=== PATIENT | female | born 1950 | race Caucasian/White ===

== ENCOUNTER → 2020-11-30 10:30 | Outpatient (CLI) | payer MEDICARE, SELFPAY ==
[2020-11-30 11:49] LABS: Add Manual Diff / Slide Review NO; Basophils Absolute Auto 200 /uL (0-100); Basophils Percent Auto 3.1 % (0-2); Eosinophils Absolute Auto 300 /uL (0-450); Eosinophils Percent Auto 5.9 % (2-4); Hematocrit 36.7 % (36-46); Hemoglobin 12.1 g/dL (12.0-16.0); Lymphocytes Absolute Auto 1600 /uL (1100-4500); Lymphocytes Percent Auto 28.1 % (25-40); Mean Corpuscular HGB Conc 32.9 % (30-36); Mean Corpuscular Hemoglobin 25.8 PG (26-34); Mean Corpuscular Volume 78.5 fL (80-100); Monocytes Absolute Auto 500 /uL (0-900); Monocytes Percent Auto 8.7 % (3-14); Neutrophils Absolute Auto 3100 /uL (1500-7000); Neutrophils Percent Auto 54.2 % (50-75); Platelet Count 222 X10^3/uL (150-400); Red Blood Cell Count 4.68 X10^6/uL (4.0-5.2); Red Cell Distribution Width 15.1 % (11.6-14.8); White Blood Cell Count 5.7 X10^3/uL (4.5-11.0)
[2020-11-30 11:54] LABS: Hemoglobin A1C% w Est Avg Glu 5.9 % (4.0-6.0)
[2020-11-30 12:18] LABS: BUN Creatinine Ratio 32.1 (6-22); Blood Urea Nitrogen 25 mg/dL (7-17); Calcium 9.1 mg/dL (8.4-10.2); Carbon Dioxide 32 mmol/L (22-32); Chloride 105 mmol/L (98-107); Estimated Glomerular Filt Rate > 60.0 mL/min (>60); Glucose 93 mg/dL (80-110); HEMOLYSIS < 15 (0-50); Potassium 4.1 mmol/L (3.4-5.1); Sodium 138 mmol/L (137-145)
== END ==
PROVIDERS: PCP Internal Medicine; Referring Provider Orthopaedic Surgery; Visit Provider Orthopaedic Surgery
DX: Z01.818 Encounter for other preprocedural examination (principal); Z01.812 Encounter for preprocedural laboratory examination; R73.9 Hyperglycemia, unspecified
CPT/HCPCS: 36415; 80048; 83036; 85025; 93005

== ENCOUNTER → 2020-12-15 13:13 | Outpatient (CLI) | payer MEDICARE, SELFPAY ==
[2020-12-15 14:35] LABS: COVID19 -Nasal RAPID Negative (Negative)
== END ==
PROVIDERS: PCP Internal Medicine; Visit Provider Physician Assistant
DX: Z20.822 Contact with and (suspected) exposure to COVID-19 (principal)
CPT/HCPCS: 87635; C9803

== ENCOUNTER 2020-12-18 15:14 | Observation (INO) | payer MEDICARE, SELFPAY ==
[2020-12-17] VITALS (18 sets, daily range): BP systolic 112–141; BP diastolic 51–78; PULSE 57–80; RESP 11–20; TEMP 36.2–37.5; O2SAT 91–98; BMI 37.4
--- NOTE | 2020-12-17 06:00 | DI.RAD.S_ITS ---
PROCEDURE: XR KNEE RT 1TO2V INDICATIONS: post op TKA TECHNIQUE: 2 views of the knee acquired. COMPARISON: [facility] [place], OLIVIA, XR KNEE STANDING BILATERAL, 06/11/2020, 11:30. [facility], OLIVIA, XR KNEE 1 OR 2 VIEWS RIGHT, 07/25/2020, 13:49. FINDINGS: Bones: Patient is status post knee joint arthroplasty. Hardware components are in expected positions. Visualized bony structures are intact. Soft tissues: Overlying postoperative changes are noted. IMPRESSION: Status post right total knee arthroplasty with expected postsurgical changes. Dictated by: Regis Gunn M.D. on 12/17/2020 at 9:55 Approved by: Regis Gunn M.D. on 12/17/2020 at 9:56
[2020-12-17] MEDS: ACETAMINOPHEN 325 MG TABLET 975 MG PO (07:15)
[2020-12-17] MEDS: MELOXICAM 7.5 MG TABLET 15 MG PO (07:16)
[2020-12-17] MEDS: PREGABALIN 75 MG CAPSULE PO (07:16)
[2020-12-17] MEDS: LACTATED RINGERS 1,000 ML 42 ML IV ×2 (07:19→09:05)
--- NOTE | 2020-12-17 07:33 | PM.PREOP ---
Pre-operative Note COVID-19 COVID-19 status: Negative Result date/Date tested (Pos, Neg/Pending): 12/15/20 Interval Note History & Physical reviewed/Exam performed by Physician: Yes Changes to H&P: No
[2020-12-17] MEDS: CEFAZOLIN 2 GM/100 ML FROZ.PIGGY IV (07:42)
[2020-12-17] MEDS: TRANEXAMIC ACID 1,000 MG VIAL 2000 MG INJ ×2 (08:00→09:04)
--- NOTE | 2020-12-17 08:14 | SUR.OPER ---
Supine on padded OR bed. Pillow under head, arms secured on padded armboards <90 degree abduction. Safety belt across torso. Non-operative leg secured with tape over blanket over lower leg. Operative leg secured in DeMayo/Oskar positioner. Foam padded brace at thigh of operative leg.
[2020-12-17] MEDS: MORPHINE 4 MG/ML INJ INJ (08:26)
[2020-12-17] MEDS: BUPIVACAINE 0.25% W/ EPI (PF) 10 ML VIAL 20 ML INJ (08:27)
[2020-12-17] MEDS: BUPIVACAINE LIPOSOME 266 MG/20 ML VIAL INJ (08:27)
--- NOTE | 2020-12-17 08:31 | SUR.OPER ---
GLASSES IN LABELED BAG TO PACU WITH PATIENT.
--- NOTE | 2020-12-17 09:35 | P.OP_ITS ---
Operative Date/Time/Diagnoses Date of procedure: 12/17/20 Time of procedure: 09:36 Pre-op diagnosis: Right knee osteoarthritis Post-op diagnosis: same Procedure & Clinicians Procedure: Right total knee replacement Same procedure as scheduled: Yes Indications: The patient has had progressively worsening right knee pain with radiographic changes consistent with arthritis. Non-operative management has failed and the patient has requested total knee replacement. The risks, benefits and alternatives to surgery were discussed with the patient prior to proceeding. Risks discussed included, but were not limited to, failure to relieve pain, stiffness, infection, nerve damage, deep venous thrombosis, pulmonary embolism, stroke, coma, heart attack, permanent paralysis and , as well as the potential need for eventual revision of the prosthetic. Surgeon: Quincy Gutierrez Director Report: Raphael Krishna Click Yes if Unassisted: No Anesthesia Type: General, Spinal and Local Operative Notes Findings: Severe medial and moderate patellofemoral osteoarthritis with relative preservation of the lateral compartment. Closure Type: primary Specimen(s): none sent Prosthetic devices, grafts, tissues, transplants, or devices: Implants used in this procedure were manufactured by the [employer] and [employer] and included the BCS II Journey total knee replacement with a size 5 right Oxinium femoral component, a size 4 non porous tibial base plate, a 9 mm cross-linked polyethylene insert and a 32 mm oval Sahra II patella. Applied: implant(s) Estimated Blood Loss (mL): 25 Blood products transfused: none Tourniquet time (min): 53 Procedure in detail: The patient was seen in the pre-operative area, where the patient identified the right knee as the operative site and this was marked with my initials. The patient received pre-operative antibiotics, and was taken to the operating room and placed on the operative table in the supine position. After satisfactory anesthesia, a point of care technician out was performed. The right leg was encircled with a tourniquet about the proximal thigh, and the leg was prepared from the toes to the tourniquet with ChloroPrep in the usual fashion and draped through sterile drapes. The leg was elevated and exsanguinated with Eschmark bandage and the tourniquet inflated to 250 mmHg pressure. The knee was approached through an approximately 18 cm incision centered over the patella and carried into the knee through a medial parapatellar arthrotomy. The anterior osteophytes and soft tissues were removed. The rotational landmarks of Haily's line and the transepicondylar axis were marked on the femur with electrocautery, and intramedullary guide holes for the femur and tibia were created. The distal femoral cut was made in 6 degrees of valgus using the intramedullary guide at the primary cut setting. The proximal tibial cut was then made using the intramedullary guide, taking 9 mm of bone off the less involved side. The extension gap was checked and the rotation of the femoral component confirmed with the gap balancing system. The anterior, posterior and chamfer cuts were then made. The posterior osteophytes and soft tissues were then removed. The posterior capsule was injected with part of a mixture of 60 ml 0.25% Marcaine mixed with 20 ml Exparel and 4 mg of morphine for post-operative pain control. The remainder of this mixture was injected into the capsule and subcutaneous tissues during cement curing. The tibia was prepared with the rotation set by an extra medullary guide. Trial tibial and femoral components were then placed and the intercondylar notch cut through the femoral trial. Range of motion was 0-130 degrees, with good stability throughout the range. The patella was then cut to accommodate the patellar prosthetic. There was no need for a lateral release. The trials were then removed, and the femoral hole plugged with a bone plug. The bone was prepared with pulsatile lavage, and dried with a sponge. Cement was applied and the final prosthetics placed. Excess cement was removed during and after cement curing. After confirming there was no extruded cement posteriorly, the final tibial insert was placed. The knee was copiously irrigated and the tourniquet deflated. Hemostasis was obtained. The capsule was closed with interrupted # 2 polyester suture. The subcutaneous layer was closed with 3-0 Vicryl, and the skin with a running 3-0 V-Lock suture and Dermabond. An Aquacel Ag dressing was applied and the patient was taken to recovery having tolerated the procedure well. Complications: none Post-operative Condition: stable Disposition: PACU Plan for aftercare: The patient will be maintained on a standard total knee replacement protocol with weight bearing as tolerated. The patient will receive aspirin and sequential compression devices for DVT prophylaxis. The patient will be discharged home when safe for the home environment.
[2020-12-17] MEDS: OXYCODONE/ACETAMINOPHEN 5/325 TABLET 1 TAB PO (09:59)
[2020-12-17] MEDS: LACTATED RINGERS 1,000 ML 100 ML IV ×2 (10:25→20:20)
--- NOTE | 2020-12-17 11:33 | PC.NURSE ---
Addendum entered by Lillian Askew R.N. 12/17/20 13:30: RT called to bleed in oxygen to cpap, 2L placed, sats 94% Addendum entered by Lillian Askew R.N. 12/17/20 13:15: Patient rating pain to right knee 6/10 given 5mg oxycodone, ate lunch without nausea. CPAP placed for sleep. Original Note: Patient alert, oriented rates pain to right knee 5/10 given one percocet at 1000 in PACU, denies nausea. CMS+ RLE, dressing CDI, scd's on. Patient oriented to room and call light.
[2020-12-17] MEDS: OXYCODONE IR 5 MG TABLET PO ×2 (12:26→17:19)
[2020-12-17] MEDS: IBUPROFEN 400 MG TABLET PO ×3 (12:26→20:03)
[2020-12-17] MEDS: ACETAMINOPHEN 325 MG TABLET 650 MG PO ×2 (14:42→20:02)
[2020-12-17] MEDS: HYDROMORPHONE 0.5 MG INJ 0.2 MG IV (15:24)
--- NOTE | 2020-12-17 15:50 | PT.IIE ---
Current Diagnoses Unilateral primary osteoarthritis, right knee (12/17/20) Surgery Performed Operation Date: 12/17/20 07:45 Actual Procedures p Total Knee Arthroplasty(Right) - Quincy Gutierrez MD Surgical History (Last Updated 12/10/20 @ 14:47 by Giovana Aguirre, RN) History of bilateral breast reduction surgery History of carpal tunnel release of both wrists History of loop recorder (~06/2019) History of tonsillectomy Medical History (Last Updated 12/10/20 @ 09:41 by Giovana Aguirre RN) History of migraine headaches History of pneumonia Insomnia Muscle spasm Sleep apnea Unilateral primary osteoarthritis, right knee Physical Therapy Inpatient Evaluation/Re-Eval M1 PT/OT-IP Prior Functional Status Start: 12/17/20 10:58 Freq: NEEDED Status: Active Protocol: Document 12/17/20 15:46 AW (Rec: 12/17/20 16:18 AW [email or web address]) Medical Review Prior Functional Status Medical History Reviewed Yes Communication WNL. Pt is an effective verbal communicator. Mobility and Gait Independent without assistive device. Pt states she could walk for as long as she wanted but needed to walk slowly and take breaks every 15-20 minutes. Activities of Daily Living and IADL's Independent with all I/ADL's. Pt is an active tow motor driver. Social History Household Members none Living Arrangements Mobile home Number of Floors (Floors) One Floor Number of Stairs To Enter/Railing? 4 RNO with no rail at sisterRanda's, house. Pt plans to stay with her sister for several days at discharge. Home Environment High Toilet,Walk in Shower Home Equipment Front Wheel Walker,Straight Cane,Raised Toilet Seat w/ Armrests,Shower Seat without Backrest,Grab Bars In Shower Employment Status Retired Additional Social History Comment Home details above refer to pt 's sister's house. Pt plans to stay with sister, Randa, for several days at discharge. Pt lives alone in [place]. Her sister lives in [place]. M2 PT-IP Current Condition Start: 12/17/20 10:58 Freq: NEEDED Status: Active Protocol: Document 12/17/20 15:46 AW (Rec: 12/17/20 16:18 AW [email or web address]) Physical Therapy Current Condition Current Condition Evaluation Date 12/17/20 Treatment Diagnosis R TKA; difficulty in walking Onset Date 12/17/20 Weight Bearing Status Weight Bearing Status Weight Bear as Tolerated M3 PT-IP Subjective Start: 12/17/20 10:58 Freq: NEEDED Status: Active Protocol: Document 12/17/20 15:46 AW (Rec: 12/17/20 16:18 AW [email or web address]) Subjective Physical Therapy Visit Type Type Initial Evaluation Visit Start Time 14:16 Visit Stop Time 15:46 Total Visit Minutes 46 Notes Split visits to coordinate with RN for pain med administration. Physical Therapy Visit Comments Patient Comments Pt is begrudgingly willing to work with PT. Patient Goals Return to normal activity Therapy Pain Assessment Pain When Pain Assessed During Mobility Pain Present Pain Present Pain Reported Location right knee Intensity 9 Scale Used 6/10 at rest Description With Movement Pain Behaviors Calling Out,Facial Grimacing, Moaning,Wincing Pain Management Techniques Apply Cold,Modification of Treatment,Re-positioning, Timing of Activity with Medications M4 PT-IP Mobility and Gait Start: 12/17/20 10:58 Freq: NEEDED Status: Active Protocol: Document 12/17/20 15:46 AW (Rec: 12/17/20 16:18 AW [email or web address]) PT-Bed Mobility Assessment Supine to Sit Supine to Sit Minimal Assistance,1 Person Assistance,Head of Bed Elevated,Bedrails Sit to Supine Sit to Supine Contact Guard Assistance Scooting Scooting to Edge of Bed Contact Guard Assistance Scooting Up and Down in Bed Standby Assistance PT-Transfer Assessment Sit to and From Stand Sit to and from Stand Moderate Assistance,1 Person Assistance,Use of Upper Extremities Equipment Transfer Assistive Device Gait Belt,Front Wheeled Walker Orthotic/Prosthetic Devices or Brace: No Transfers Transfer Destination Bed,Bedside Commode Transfer Technique Stand Step Pivot Transfer Ability Level of Assist Moderate Assistance,1 Person Assistance,Use of Upper Extremities Comments Mobility Comments Pt was reclined in the bed as PT arrived. On first attempts, pt transitioned supine to long-sitting min A x 1 with HOB flat. She cried out with pain as she attempted to move her right leg to right side of the bed, especially as the knee flexed. Pt was unable to tolerate more activity and requested additional pain meds . Coordinated with RN and returned later to complete evaluation after pt received IV dilaudid. Pt was willing but apprehensive. With HOB elevated, she completed supine to sit min A x 1 with near- constant support for the operative leg. Pt sat EOB, leaning away from her operative side. After scooting to EOB, pt stood from the bed in lowest position mod A x 1 with cues for knee extension and assist to move hands to the walker. Once standing, pt was able to shift weight laterally before completing stand step pivot mod A x 1 to the [facility] set up on her left side. Pt briefly tolerated sitting but impulsively attempted to stand by pulling on the walker. Educated pt to wait for assist and to push off from the commode handles. Pt sat another 4 minutes but was unable to void. She transferred back to the bed mod A x 1 and completed sit to supine CGA while lifting her RLE with the left foot hooked under the ankle. Pt declined further mobilty. She was positioned on the bed with call light and phone in reach, bilateral calf SCD's and ice packs applied, and bed alarm on for safety due to pt's grogginess. Gait Assessment Comments Gait Comments Steps taken during pivot transfer only. Did not assess ambulation at this visit. Stair Climbing Assessment Comments Stair Climbing Comments Not assessed. PT-Balance Assessment Sitting Balance and Reactions Static Sitting Balance Ability Good Dynamic Sitting Balance Ability Good Standing Balance and Reactions Static Standing Balance Ability Fair Dynamic Standing Balance Ability Fair Device Used FWW M5 PT-IP Objective Assessments Start: 12/17/20 10:58 Freq: NEEDED Status: Active Protocol: Document 12/17/20 15:46 AW (Rec: 12/17/20 16:18 AW [email or web address]) Orientation Orientation/Cognition Level of Alertness Lethargic Orientation Name,Day of Week,Place, Situation Language Function Ability No Deficits Noted Safety Awareness Decreased Safety Awareness Gross Range of Motion Upper Extremity ROM Assessment Within Functional Limits Lower Extremity ROM Assessment Right Impaired Strength Lower Extremity Strength Assessment Right Impaired Knee 3-/5 Ankle 4/5 Sensation Assessment Sensation Gross Sensation Right LE Impaired,Left LE Impaired Comments Sensation Comments Pt reports numbness bilateral buttocks and thighs. M6 PT-IP Treatment Start: 12/17/20 10:58 Freq: NEEDED Status: Active Protocol: Document 12/17/20 15:46 AW (Rec: 12/17/20 16:18 AW [email or web address]) Physical Therapy Treatment Exercises Exercises Ankle Pumps,Quad Sets,Heel Slides,Passive Knee Extension Hang Knee ROM Measurement 5-80 Education Education Provided Weight Bearing Status,Post-Op Packet,Safety Other Treatments Other Treatment Performed Provided education on role of PT, plan of care, weightbearing status, and safe use of FWW. M7 PT-IP Assessment and Plan Start: 12/17/20 10:58 Freq: NEEDED Status: Active Protocol: Document 12/17/20 15:46 AW (Rec: 12/17/20 16:18 AW [email or web address]) PT Summary Assessment and Plan Potential Rehabilitation Potential Good Status of Condition at Evaluation Unstable Summary Impairments Pain,ROM,Strength,Balance, Sensation,Bed Mobility, Transfers,Gait,Activity Tolerance Assessment Summary Arlene is a 70 yo woman seen for PT evaluation on POD0 following R TKA. She is independent in all regards at baseline. She lives alone but plans to stay with her sister, niece, and nephew for several days at discharge. On evaluation, pt was limited by high level of pain and required mod assist for transfers, min assist for bed mobility. Ambulation was not assessed due to pt's pain presentation. Pt's obesity is likely to contribute to mobility impairments in the postoperative course. PT anticipates pt will likely be safe to discharge to her sister's home with assist and outpatient PT once medically cleared. Will continue to assess progress and to refine discharge recommendation as needed. Goals Bed Mobility Goal Independent Transfer Goal Standby Assistance,Front Wheeled Walker Gait Goal Standby Assistance,Front Wheel Walker Gait Distance 150 Other Goals - up/down 4 steps with HAT LINING PASTER/CGA no railing Days to Meet Goals 4 Frequency of Treatment Frequency Of Treatment Twice a Day Treatment Plan Physical Therapy Treatment Plan Bed Mobility Training,Transfer Training,Gait Training, Therapeutic Exercise,Balance Retraining,Post Op Education, Hot or Cold Pack Other Recommendations and Next Treatment transfers; assess ambulation Focus with FWW; stairs when able; may need to coordinate caregiver training with pt's sister, niece, or nephew Recommendations To Nursing Amount of Assist Needed 1 Person Assist Discharge Recommendations PT Discharge Recommendations Home with Assistance, Outpatient PT Transportation Needs at Discharge Private Vehicle
[2020-12-17] MEDS: hydrOXYzine pamoate 25 MG CAPSULE PO (17:19)
[2020-12-17] MEDS: DOCUSATE 100 MG CAPSULE PO (20:03)
[2020-12-17] MEDS: ASPIRIN EC 81 MG TABLET PO (20:03)
[2020-12-17] MEDS: OXYCODONE IR 10 MG TABLET PO (20:20)
--- NOTE | 2020-12-17 20:33 | PC.NURSE ---
Pt reports moderate pain, improved with PO oxycodone and Vistiril;Ice applied to right knee; c/m/s positive to RLE, PPP; LS clear, RA+95%, IS 2000; 1-[place]st with gait belt and [place] [facility] daughter in room
[2020-12-18] VITALS (7 sets, daily range): BP systolic 110–151; BP diastolic 51–72; PULSE 55–64; RESP 15–18; TEMP 36.6–37.1; O2SAT 91–95
[2020-12-18] MEDS: IBUPROFEN 400 MG TABLET PO ×6 (00:47→19:28)
[2020-12-18] MEDS: OXYCODONE IR 10 MG TABLET PO ×5 (01:01→19:13)
[2020-12-18] MEDS: hydrOXYzine pamoate 25 MG CAPSULE PO ×3 (01:01→19:13)
[2020-12-18 05:16] LABS: Hematocrit 33.1 % (36-46); Hemoglobin 10.5 g/dL (12.0-16.0)
--- NOTE | 2020-12-18 07:01 | PC.NURSE ---
Pt stable through shift. Pain controlled w/ rxed medication. Able to move 1x assist FWW. Fluids d/cd.
--- NOTE | 2020-12-18 07:40 | PM.DS.1 ---
History of Present Illness History of Present Illness Date Patient Seen: 12/18/20 Time Patient Seen: 07:40 Chief complaint: OPB Narrative: History and physical for this patient is contained in a previously completed note. Please refer to that note for this information. Discharge Providers Provider Discharge Date: 12/18/20 Primary care physician: Douglas Tripp MD Consults: 12/17/20 10:19 Consult to Discharge Planning Routine Comment: Consult to Physical Therapy Evaluate & Treat Comment: Physician Instructions: postop TKA protocol Consult to Respiratory Therapy Evaluate & Treat Comment: Physician Instructions: Evaluate and treat 12/17/20 13:15 Consult to Respiratory Therapy Evaluate & Treat Comment: Physician Instructions: Evaluate and treat Discharge provider: Quincy Gutierrez MD Summary Hospital Course Discharge Diagnosis: 1. Right knee osteoarthritis 2. Post hemorrhagic anemia Hospital Course: The patient was admitted to the hospital and taken directly to the operating room on December 17, 2020. She underwent a right total knee replacement without complications. Her postoperative course was marked by difficulties with pain control. She had a mild post hemorrhagic anemia. Status at Discharge Cognitive/behavioral status at discharge: oriented Functional status at discharge: uses cane/walker Overall status at discharge: patient is progressing back to baseline Time Spent with Patient Time spent: Less than 30 minutes Exam Vital Signs (past 8 hours): - 12/18/20 00:00 12/18/20 04:00 Temperature 98.4 F Pulse Rate 57 L 61 Respiratory Rate 18 18 Blood Pressure 129/70 151/72 H Pulse Oximetry 93 93 Oxygen Delivery Method Room Air Oxygen Flow Rate 0 Narrative Exam Narrative: Right knee wound is dressed with no drainage on the bandage. Calf is soft. Light touch and motion are intact in the right lower extremity. Objective Labs Result Diagrams: 12/18/20 04:51 Labs: Laboratory Results - last 24 hr 12/18/20 04:51 Hgb 10.5 L Hct 33.1 L PFSH Medical History (Updated 12/10/20 @ 09:41 by Giovana Agiurre RN) History of migraine headaches History of pneumonia Insomnia Muscle spasm Sleep apnea Unilateral primary osteoarthritis, right knee Surgical History (Updated 12/10/20 @ 14:47 by Giovana Aguirre RN) History of bilateral breast reduction surgery History of carpal tunnel release of both wrists History of loop recorder (~06/2019) History of tonsillectomy Social History household members: none Smoking Status: Never smoker alcohol intake: current Discharge Assessment & Plan Assessment and Plan Assessment: Stable postoperative day 1 status post right total knee replacement. She has a mild post hemorrhagic anemia which should not require treatment. She has had difficulty with pain control but is currently reporting reasonable control with 10 mg of oxycodone every 3-4 hours. I had a long talk with her this morning regarding anticipated pain postoperatively and the appropriate multimodal approach with the use of anti inflammatories, Tylenol, oxycodone and hydroxyzine. I have explained that the blocks will wear off tomorrow and that there will be a temporary worsening of discomfort. Plan of Treatment: Discharge today with follow-up in 10-14 days. The patient was provided her postoperative prescriptions at her preoperative appointment. These included oxycodone, Vistaril and instructions for the use of Tylenol and ibuprofen. She will use aspirin 81 mg p.o. b.i.d. as DVT prophylaxis. Discharge Plan Discharge Plan Patient Disposition: Home Discharge orders & Medications Discharge Orders: Discharge (Order); Ordered 12/18/20 Ordered By: Quincy Gutierrez Prescriptions: New acetaminophen 325 mg Tablet 650 mg PO TID 30 Days Qty: 180 RF: 0 aspirin 81 mg Tablet,Delayed Release (Dr/Ec) 81 mg PO BID 42 Days Qty: 84 RF: 0 oxycodone 5 mg Tablet 5 mg PO Q4H PRN (Reason: Pain, Moderate (4-6)) Qty: 40 RF: 0 hydroxyzine pamoate 25 mg Capsule 25 mg PO Q6HR PRN (Reason: Nausea) Qty: 40 RF: 0 Continued cyclobenzaprine 10 mg Tablet 10 mg PO TID PRN (Reason: Muscle Spasms) RF: 0 trazodone 50 mg Tablet 50 mg PO DAILY PRN (Reason: Insomnia) RF: 0 citalopram [Celexa] 20 mg Tablet 20 mg PO DAILY RF: 0 hydrochlorothiazide 25 mg Tablet 25 mg PO DAILY RF: 0 rizatriptan 5 mg Tablet 5 mg PO PRN PRN (Reason: Migraine Headache) RF: 0 cholecalciferol (vitamin D3) [Vitamin D3] 10 mcg (400 unit) Capsule 10 mcg PO DAILY RF: 0 topiramate 50 mg Tablet 50 mg PO DAILY RF: 0 Follow up/Referrals: Douglas Tripp MD [Primary Care Provider] - Quincy Gutierrez MD [Physician] - 2 Weeks Diet/Activity/Treatments Diet: Diet as Tolerated and Regular Activity: You may bear weight as tolerated on your right leg. Cold/Heat Therapy: Apply ice to the right knee for 15 minutes of every hour as needed for pain control. Skin/Wound/Dressing Care Report to your healthcare provider any signs of infection, such as:: chills, fever, night sweats, increased pain, unusual drainage and unusual redness Dressing: Leave the Maico wrap intact until 3 days after surgery. You may then remove the [place] wrap and shower normally. Leave the deeper dressing in place until follow-up. You may shower with the deeper dressing in place. If the central strip of the deeper dressing becomes saturated with either water or blood, please call the office to have it evaluated. Visit Report/Discharge Packet Instructions: DI for Knee Replacement Stand Alone Forms: Surgery Discharge Discharge Data Primary Care Provider: Douglas Tripp Attending Provider: Quincy Gutierrez Quality VTE Deep Vein Thrombosis/Pulmonary Embolism Present on Admission: No
[2020-12-18] MEDS: hydroCHLOROthiazide 25 MG TABLET PO (09:28)
[2020-12-18] MEDS: CITALOPRAM 10 MG TABLET 20 MG PO (09:28)
[2020-12-18] MEDS: DOCUSATE 100 MG CAPSULE PO ×2 (09:28→19:29)
[2020-12-18] MEDS: ASPIRIN EC 81 MG TABLET PO ×2 (09:29→19:29)
[2020-12-18] MEDS: ACETAMINOPHEN 325 MG TABLET 650 MG PO ×3 (09:29→19:28)
--- NOTE | 2020-12-18 10:40 | CM.DANOTE ---
Addendum entered by TELLO Hanson 12/19/20 13:56: Home today as expected 12.19.20, no needs from this CLIENT SERVICES ADMINISTRATOR. JW Original Note: DCP/Assessment: Reviewed chart. Patient is a 70yr old female admitted to [facility] for right TKA performed on 12-17-[address] Gutierrez. PCP listed is Dr. Douglas Griffith. Primary payor is [employer]. Met with patient this AM explained CM/SW role. Patient resting comfortably in bed. Therapy evaluation currently pending. Patient reports that she hopes to d/c home today. Patient has family staying with her upon d/c. Patient reports that she has all needed DME and outpatient therapy scheduled to begin next week. P: Home when stable. CM team to continue to follow. TELLO Matos Discharge Planning/Care Management CM Discharge Assessment Start: 12/18/20 10:21 Freq: Status: Active Protocol: Document 12/18/20 10:21 KJS (Rec: 12/18/20 10:40 KJS [id number]) Discharge Planning Assessment Assigned Book Publisher TELLO Matos Contact Information Cristy Shukla (daughter) ph# [phone] Advance Directives? Yes Advance Directives on File No History Provided By Patient,Medical Record Prior Living Arrangements Mobile home Household Members none Type of transporation used prior to Drives own vehicle admit Independent with ADL's Yes Is patient alert and oriented? Yes Caregiver for Another No DME Already Rented / Owned FWW / Walker Patient/Family Preference OP PT Therapy Barriers to Discharge No Discharge Plan Home Transportation Arrangement Family to provide transport. Referrals Initiated None needed Additional Comment Therapy evaluation pending. Whiteboard Updated in Patient Room with Yes name and ext. # of Book Publisher Review Status In Process Next Review Type Continued Stay Review Pre-Anesthesia Assessment Start: 12/10/20 08:26 Freq: Status: Active Protocol: Document 12/10/20 08:27 KHANG (Rec: 12/10/20 09:38 KHANG [id number]) Pre-Anesthesia Assessment Preferred Name Arlene Patient Information Reviewed Via Phone Assessment Assessment Completed With Patient Diagnostic Results BMP/CMP,CBC,Other Comment A1c, Covid Primary Care Provider Gricel Alaniz Seen Specialist in Last 12 Months Yes Specialist Seen Orthopedist Comment will find out who/what her implant is and will call back Primary Language Marshallese Supervisor Sewing Room Required No Height 167.01 cm Hearing Ability Hard of Hearing Visual Impairment Partially Limited Visual Assist Glasses Dentition Type Teeth, Natural Present Barriers to Learning Visual Hx Anesthesia Reactions Yes: Intense nausea Hx Family Anesthesia Reaction No Hx Malignant Hyperthermia No Hx Blood Transfusions No Hx Blood Transfusion Reaction No Anesthesia Review Requested No Telemarketing Manager No alcohol intake frequency holidays/special occasions only Smoking Status Never smoker Substance Use Type does not use Pain Present Pain Reported Comment Bilateral knee pain and back Musculoskeletal Symptoms Back Pain,Joint Pain,Muscle Spasms History of Falling (Recent or History of No ) Patient is completely paralyzed or No completely immobile Ambulatory Aid None/bed rest/nurse assist Gait/Transferring Normal/bedrest/immobile Mental Status Oriented to own ability Is patient on oxygen? No Does patient have TEJADA/SOB No Hx Sleep Apnea Yes CPAP/BIPAP use prescribed and used routinely Will Bring CPAP/BIPAP DOS Yes Currently Taking a Beta Mimi No Can You Climb a Flight of Stairs Without No SOB Hx Chest Pain No Hx SOB No Hx Syncope or Dizziness No Anti-Coagulant Therapy No Has a Solar Designer Yes: Will call back with info Pacemaker Rep Required? No Comment Loop recorder implanted 07/11 with no cardiac follow-ups Additional comment Remote device checks Diet Type At Home Regular dysphagia No Bladder Pattern Nocturia Urinary Catheter Present No Hx Urinary Self Catheterization No Diabetes No Patient No Lactating No Hx Drug Resistant Organism No Presence of External or Internal Medical Yes: Loop Recorder Devices Have you had any close contact with No someone diagnosed with COVID-19? Are you experiencing any of these No symptoms symptoms? Evaluation/Screening for possible COVID- Yes 19 infection completed? Marital Status Lives With other Prior Living Arrangements Mobile home Number of Floors (Floors) One Floor Number of Stairs To Enter/Railing? 3 steps into the house Support System Family,Sibling(s) Does the Patient Have Assistance After Yes Surgery Patient Discharge Plan Description Other Comment Staying with her sister for a few days Feels Safe in Current Environment Yes Been Physically Hurt or Threatened By a No Person in Current Environment Do you have thoughts of harming yourself None or others? Are you currently considering suicide? No Do you have a plan to hurt yourself or No Plan others? Do You Have Any Spiritual Beliefs That No May Affect Your HC Choices? Do You Have Any Cultural Practices That No May Affect Your HC Choices? Spiritual Referral Nondenominational Who Can We Speak to About Patient's Care Family & Friends Identifying Code for Release of Patient declined Information Health Care Proxy/Next of Kin Son - Freddy Shukla Health Care Proxy / Emergency Contact Name Son/ - Freddy/Yamilet Shukla Emergency Contact /[phone] Advance Directives? Yes Advance Directives on File No Requested Patient Bring Advanced Yes Directives DOS Power of Multi Punch Operator No PAC Instructions Assistance for 24 hours post- op,Bring CPAP/BIPAP,Do not shave/clip surgical site, Durable medical equipment, Medications to take/avoid, Nasal antibiotic,No ETOH/ petroleum product on skin DOS, NPO,Post-op transportation,Pre -op antibiotic,Pre-surgical wash,Sensory aids,Sturdy shoes /comfortable clothes,Do not bring valuables and remove jewelry
--- NOTE | 2020-12-18 12:09 | PT.IPTN ---
Current Diagnoses Unilateral primary osteoarthritis, right knee (12/17/20) Surgery Performed Operation Date: 12/17/20 07:45 Actual Procedures p Total Knee Arthroplasty(Right) - Quincy Gutierrez MD Physical Therapy Treatment Note M2 PT-IP Current Condition Start: 12/17/20 10:58 Freq: NEEDED Status: Active Protocol: Document 12/17/20 15:46 AW (Rec: 12/17/20 16:18 AW [id number]) Physical Therapy Current Condition Current Condition Evaluation Date 12/17/20 Treatment Diagnosis R TKA; difficulty in walking Onset Date 12/17/20 Weight Bearing Status Weight Bearing Status Weight Bear as Tolerated M3 PT-IP Subjective Start: 12/17/20 10:58 Freq: NEEDED Status: Active Protocol: Document 12/18/20 11:31 CLB (Rec: 12/18/20 13:39 CLB [id number]) Subjective Physical Therapy Visit Type Type Treatment Note Visit Start Time 11:31 Visit Stop Time 12:09 Total Visit Minutes 38 Number of OFFSHORE DIVER Visits 1 Physical Therapy Visit Comments Patient Comments Pt wanting to go home and willing to do therapy. Therapy Pain Assessment Pain When Pain Assessed During Mobility Pain Present Pain Present Pain Reported Location right knee Intensity 1 Scale Used Numeric (0 - 10) Pain Management Techniques Timing of Activity with Medications M4 PT-IP Mobility and Gait Start: 12/17/20 10:58 Freq: NEEDED Status: Active Protocol: Document 12/18/20 11:31 CLB (Rec: 12/18/20 13:39 CLB [id number]) PT-Bed Mobility Assessment Supine to Sit Supine to Sit Standby Assistance Scooting Scooting to Edge of Bed Standby Assistance PT-Transfer Assessment Sit to and From Stand Sit to and from Stand Standby Assistance,Use of Upper Extremities Equipment Transfer Assistive Device Gait Belt,Front Wheeled Walker Orthotic/Prosthetic Devices or Brace: No Transfers Transfer Destination Chair Transfer Technique Stand Step Pivot Transfer Ability Level of Assist Standby Assistance,1 Person Assistance,Use of Upper Extremities Comments Mobility Comments Pt in bed performed ther ex in supine. Pt then able to use GB to assist her own leg OOB. Pt stood from bed CGA. Pt ambulated with step to gait pattern then as pt ambulated further pt able to perform small step thru gait pattern and increase pace. Pt ambulated to therapy stairs, pt climbed three steps with BIOMETRICS ANALYST and right rail. Pt then climbed three steps with BIOMETRICS ANALYST and no rail on right. Pt able to climb stairs w/o increase in pain. Pt then ambulated around [facility] back to room. Pt sat in chair SBA and performed seated HS's. Left pt in chair with lunch, call light and all needs within reach. Gait Assessment Gait Gait Assistance Required: Standby Assistance,1 Person Assist Distance (Feet) 275 Able to Maintain Weight Bearing Status Yes During Gait Assistive Devices Assistive Device Gait Belt,Front Wheeled Walker Orthotic/Prosthetic Devices or Brace: No Gait Deviations General Gait Pattern Antalgic,Decreased Stride Length,Decreased Feet Clearance,Step-to Gait Factors Limiting Gait Function Factors Limiting Gait Function Decreased Activity Tolerance, Decreased Strength,Pain,Poor Balance Comments Gait Comments see mobility comments Stair Climbing Assessment Evaluation Level of Assist On Stairs Contact Guard Assistance,1 Person Assistance Devices Stair Climbing Assistive Devices Right Railing Technique/Endurance Stair Climbing Direction Ascend and Descend Stair Climbing Technique Step to Step Number of Steps Climbed 3 Stair Climbing Set # Repetitions (reps) 2 Comments Stair Climbing Comments Pt able to climb stairs with BIOMETRICS ANALYST and no rail. M5 PT-IP Objective Assessments Start: 12/17/20 10:58 Freq: NEEDED Status: Active Protocol: Document 12/17/20 15:46 AW (Rec: 12/17/20 16:18 AW [id number]) Orientation Orientation/Cognition Level of Alertness Lethargic Orientation Name,Day of Week,Place, Situation Language Function Ability No Deficits Noted Safety Awareness Decreased Safety Awareness Gross Range of Motion Upper Extremity ROM Assessment Within Functional Limits Lower Extremity ROM Assessment Right Impaired Strength Lower Extremity Strength Assessment Right Impaired Knee 3-/5 Ankle 4/5 Sensation Assessment Sensation Gross Sensation Right LE Impaired,Left LE Impaired Comments Sensation Comments Pt reports numbness bilateral buttocks and thighs. M6 PT-IP Treatment Start: 12/17/20 10:58 Freq: NEEDED Status: Active Protocol: Document 12/18/20 11:31 CLB (Rec: 12/18/20 13:39 CLB [id number]) Physical Therapy Treatment Exercises Exercises Ankle Pumps,Quad Sets,Heel Slides,Straight Leg Raises, Short Arc Quads,Seated Knee Flexion/Extension Knee ROM Measurement 5-70 Education Education Provided Weight Bearing Status,Post-Op Packet,Safety M7 PT-IP Assessment and Plan Start: 12/17/20 10:58 Freq: NEEDED Status: Active Protocol: Document 12/18/20 11:31 CLB (Rec: 12/18/20 13:39 CLB [id number]) PT Summary Assessment and Plan Potential Rehabilitation Potential Good Summary Impairments Pain,ROM,Strength,Balance, Sensation,Bed Mobility, Transfers,Gait,Activity Tolerance Assessment Summary Pt requiring SBA for bed mobility and sit<>stand, Pt able to ambulate ~275ft w/FWW/ CGA then SBA. Pt able to climb two sets of stairs with BIOMETRICS ANALYST. Pt will discharge to her sisters home with assist of sister, niece and nephew. Goals Bed Mobility Goal Independent Transfer Goal Standby Assistance,Front Wheeled Walker Gait Goal Standby Assistance,Front Wheel Walker Gait Distance 150 Other Goals - up/down 4 steps with BIOMETRICS ANALYST/CGA no railing Days to Meet Goals 4 Frequency of Treatment Frequency Of Treatment Twice a Day Treatment Plan Physical Therapy Treatment Plan Bed Mobility Training,Transfer Training,Gait Training, Therapeutic Exercise,Balance Retraining,Post Op Education, Hot or Cold Pack Recommendations To Nursing Amount of Assist Needed 1 Person Assist Discharge Recommendations PT Discharge Recommendations Home with Assistance, Outpatient PT Transportation Needs at Discharge Private Vehicle
[2020-12-18] MEDS: CYCLOBENZAPRINE 10 MG TABLET PO (14:02)
[2020-12-18] MEDS: HYDROMORPHONE 0.5 MG INJ 0.2 MG IV (14:53)
[2020-12-19] MEDS: IBUPROFEN 400 MG TABLET PO ×3 (00:49→09:03)
[2020-12-19] MEDS: TRAZODONE 50 MG TABLET PO (01:31)
[2020-12-19 04:26] VITALS: BP 126/65; PULSE 65; RESP 16; TEMP 36.9; O2SAT 95
[2020-12-19] MEDS: OXYCODONE IR 10 MG TABLET PO ×2 (05:32→09:04)
--- NOTE | 2020-12-19 06:58 | PC.NURSE ---
Pt stable through night, pain controlled with prescribed medication. Able to ambulate 1x assist w/ minimal difficulty.
[2020-12-19 08:08] VITALS: BP 136/61; PULSE 72; RESP 17; TEMP 36.8; O2SAT 94
[2020-12-19] MEDS: DOCUSATE 100 MG CAPSULE PO (09:03)
[2020-12-19] MEDS: CITALOPRAM 10 MG TABLET 20 MG PO (09:05)
[2020-12-19] MEDS: ACETAMINOPHEN 325 MG TABLET 650 MG PO (09:05)
[2020-12-19] MEDS: hydroCHLOROthiazide 25 MG TABLET PO (09:05)
[2020-12-19] MEDS: ASPIRIN EC 81 MG TABLET PO (09:05)
--- NOTE | 2020-12-19 09:47 | PT.IPTN ---
Current Diagnoses Unilateral primary osteoarthritis, right knee (12/18/20) Surgery Performed Operation Date: 12/17/20 07:45 Actual Procedures p Total Knee Arthroplasty(Right) - Quincy Gutierrez MD Physical Therapy Treatment Note M2 PT-IP Current Condition Start: 12/17/20 10:58 Freq: NEEDED Status: Active Protocol: Document 12/17/20 15:46 AW (Rec: 12/17/20 16:18 AW [id number]) Physical Therapy Current Condition Current Condition Evaluation Date 12/17/20 Treatment Diagnosis R TKA; difficulty in walking Onset Date 12/17/20 Weight Bearing Status Weight Bearing Status Weight Bear as Tolerated M3 PT-IP Subjective Start: 12/17/20 10:58 Freq: NEEDED Status: Active Protocol: Document 12/19/20 09:25 SP (Rec: 12/19/20 10:31 SP [id number]) Subjective Physical Therapy Visit Type Type Treatment Note Visit Start Time 09:25 Visit Stop Time 09:47 Total Visit Minutes 37 Notes MATT Baeza attended tx and provided assist if needed. Number of GEOLOGIST Visits 2 Physical Therapy Visit Comments Patient Comments Pt willing to work with therapy. Patient Goals To go to sister's home with family to assist her if needed upon DC. Therapy Pain Assessment Pain When Pain Assessed At Rest Pain Present Pain Present Pain Reported Location right knee Intensity 3 Scale Used at rest and no worse with mobility Description With Movement Pain Behaviors Facial Grimacing Pain Management Techniques Apply Cold,Re-positioning, Timing of Activity with Medications M4 PT-IP Mobility and Gait Start: 12/17/20 10:58 Freq: NEEDED Status: Active Protocol: Document 12/19/20 09:25 SP (Rec: 12/19/20 10:31 SP [id number]) PT-Bed Mobility Assessment Supine to Sit Supine to Sit Standby Assistance Sit to Supine Sit to Supine Standby Assistance Scooting Scooting to Edge of Bed Standby Assistance Scooting Up and Down in Bed Standby Assistance PT-Transfer Assessment Sit to and From Stand Sit to and from Stand Standby Assistance,Use of Upper Extremities Equipment Transfer Assistive Device Gait Belt,Front Wheeled Walker Orthotic/Prosthetic Devices or Brace: No Transfers Transfer Destination Bed Transfer Technique Pt ambulated using FWW Transfer Ability Level of Assist Contact Guard Assistance,1 Person Assistance,Use of Upper Extremities Comments Mobility Comments Supine>sit using gait belt for RLE mobility support, scoot to EOB SBA. Sit<> stand SBA with occasional cuing for hand placement push from bed to stand and reaching back prior to sitting for safety. Pt ambulated into hallway to an completed stairs, around nursing station and returned to room SBA- CG using FWW step to gait initially with cuing for step over step, R LE toe off, R knee flexion into heel toe gait phases to assist normalize quality gait, unsteady retro x2 with CG but self recovery. When returned to room, pt returned to bed using gait belt for RLE repositioning onto/ center in bed SBA. SPTA provided cold pack to R knee. Call light and all needs in reach, bed armed to alert out of bed mobility mobility awareness for safety before left due to pt still a fall risk. Pt ok to return home with family to assist her when medically stable. Recommending outpt therapy to progress ROM and strength to increase functional mobility. Gait Assessment Gait Gait Assistance Required: Standby Assistance,Contact Guard Assist,1 Person Assist Distance (Feet) 160 Able to Maintain Weight Bearing Status Yes During Gait Assistive Devices Assistive Device Gait Belt,Front Wheeled Walker Orthotic/Prosthetic Devices or Brace: No Gait Deviations General Gait Pattern Antalgic,Decreased Stride Length,Decreased Feet Clearance,Step-to Gait Factors Limiting Gait Function Factors Limiting Gait Function Decreased Activity Tolerance, Decreased Strength,Limited Range of Motion,Pain,Poor Balance,Poor Safety Awareness Comments Gait Comments Pt step to gait initially using FWW, improved as distance progressed step over step with cuing. See mobility for details. Stair Climbing Assessment Evaluation Level of Assist On Stairs Minimal Assistance,Moderate Assistance,1 Person Assistance Devices Stair Climbing Assistive Devices Straight Cane Technique/Endurance Stair Climbing Direction Ascend and Descend Stair Climbing Technique Step to Step Number of Steps Climbed 3 Stair Climbing Set # Repetitions (reps) 1 Comments Stair Climbing Comments Pt ascend/descend 3 stairs L SPC, R UE ROAD BOSS with Mod support for down pressure and slight balance support, cued for proper patterning, pt didn't recall. Discussed with patient needing more assist for stair mgt and asked if could call sister to discuss mobility assist but pt refused, stated sister does have short term memory deficits and wouldn't remember. Pt stated there will be family there to assist her with assist needs. PT-Balance Assessment Sitting Balance and Reactions Static Sitting Balance Ability Good Dynamic Sitting Balance Ability Good Standing Balance and Reactions Static Standing Balance Ability Fair Dynamic Standing Balance Ability Fair Device Used FWW M5 PT-IP Objective Assessments Start: 12/17/20 10:58 Freq: NEEDED Status: Active Protocol: Document 12/17/20 15:46 AW (Rec: 12/17/20 16:18 AW [id number]) Orientation Orientation/Cognition Level of Alertness Lethargic Orientation Name,Day of Week,Place, Situation Language Function Ability No Deficits Noted Safety Awareness Decreased Safety Awareness Gross Range of Motion Upper Extremity ROM Assessment Within Functional Limits Lower Extremity ROM Assessment Right Impaired Strength Lower Extremity Strength Assessment Right Impaired Knee 3-/5 Ankle 4/5 Sensation Assessment Sensation Gross Sensation Right LE Impaired,Left LE Impaired Comments Sensation Comments Pt reports numbness bilateral buttocks and thighs. M6 PT-IP Treatment Start: 12/17/20 10:58 Freq: NEEDED Status: Active Protocol: Document 12/19/20 09:25 SP (Rec: 12/19/20 10:31 SP [id number]) Physical Therapy Treatment Exercises Exercises Ankle Pumps,Quad Sets,Heel Slides,Supine Hip Abduction, Seated Knee Flexion/Extension Education Education Provided Weight Bearing Status,Post-Op Packet,Safety Other Treatments Other Treatment Performed GEOLOGIST discussed but not performed post op exercises end of tx while pt in bed, pt declined performance I am ready to just go to sleep. GEOLOGIST discussed importance of performance of ther ex and ambulation every hour to allow proper circulation and ROM to reduce risk for DVT with pt verbal confirmation. M7 PT-IP Assessment and Plan Start: 12/17/20 10:58 Freq: NEEDED Status: Active Protocol: Document 12/19/20 09:25 SP (Rec: 12/19/20 10:31 SP [id number]) PT Summary Assessment and Plan Potential Rehabilitation Potential Good Status of Condition at Evaluation Stable Summary Impairments Pain,ROM,Strength,Balance, Sensation,Bed Mobility, Transfers,Gait,Activity Tolerance Progress Towards Goals Progressing Toward Goals,Slow Progress due to Pain,Slow Progress due to Activity Tolerance Assessment Summary Pt requiring SBA for bed mobility with use of GB for RLE repositioning ( GEOLOGIST donned / doffed per pt request) and sit<>stand, Pt able to ambulate ~160ft w/FWW/ SBA- CGA. Pt able to climb 1 set of stairs with SPC in LUE and ROAD BOSS on R Mod A. Pt will discharge to her sisters home with assist of sister, niece and nephew. Goals Bed Mobility Goal Independent Transfer Goal Standby Assistance,Front Wheeled Walker Gait Goal Standby Assistance,Front Wheel Walker Gait Distance 150 Other Goals - up/down [address] BOSS/CGA no railing Days to Meet Goals 4 Frequency of Treatment Frequency Of Treatment Twice a Day Treatment Plan Physical Therapy Treatment Plan Bed Mobility Training,Transfer Training,Gait Training, Therapeutic Exercise,Balance Retraining,Post Op Education, Hot or Cold Pack Other Recommendations and Next Treatment quality gait w/ FWW, stairs, Focus RLE ROM/ ther ex Recommendations To Nursing Amount of Assist Needed 1 Person Assist Discharge Recommendations PT Discharge Recommendations Home with Assistance, Outpatient PT Transportation Needs at Discharge Private Vehicle
--- NOTE | 2020-12-19 10:09 | PM.DS.1 ---
History of Present Illness History of Present Illness Date Patient Seen: 12/19/20 Time Patient Seen: 10:09 Chief complaint: OPB Narrative: History and physical for this patient is contained in a previously completed note. Please refer to that note for this information. Discharge Providers Provider Date of admission: 12/18/20 15:14 Discharge Date: 12/19/20 Primary care physician: Douglas Tripp MD Consults: 12/17/20 10:19 Consult to Discharge Planning Routine Comment: Consult to Physical Therapy Evaluate & Treat Comment: Physician Instructions: postop TKA protocol Consult to Respiratory Therapy Evaluate & Treat Comment: Physician Instructions: Evaluate and treat 12/17/20 13:15 Consult to Respiratory Therapy Evaluate & Treat Comment: Physician Instructions: Evaluate and treat Discharge provider: Quincy Gutierrez MD Summary Hospital Course Discharge Diagnosis: 1. Right knee osteoarthritis 2. Post hemorrhagic anemia Hospital Course: Patient was admitted the hospital and taken directly to the operating room on December 17, 2020 where she underwent a right total knee replacement. The surgery was without complications. She had a mild post hemorrhagic anemia which did not require specific treatment. Her postoperative course was marked by significant pain control difficulties on the evening of her surgery and the 1st postoperative day. As a result her discharge was held and she was maintained in the hospital until the morning of postoperative day 2. At the time of this dictation she has made good progress with physical therapy. She appears to be stable for discharge. Her pain is controlled on oral medications. Status at Discharge Cognitive/behavioral status at discharge: oriented Functional status at discharge: uses cane/walker Overall status at discharge: patient is progressing back to baseline Time Spent with Patient Time spent: Less than 30 minutes Exam Vital Signs (past 8 hours): - 12/19/20 04:26 12/19/20 08:08 Temperature 98.5 F 98.3 F Pulse Rate 65 72 Respiratory Rate 16 17 Blood Pressure 126/65 136/61 Pulse Oximetry 95 94 Oxygen Delivery Method Room Air Oxygen Flow Rate 0 Narrative Exam Narrative: Right knee wound is dressed with no drainage on the bandage. Calf is soft. Light touch and motion are intact in the right lower extremity. Objective Labs Result Diagrams: 12/18/20 04:51 [facility] Medical History (Updated 12/10/20 @ 09:41 by Giovana Aguirre RN) History of migraine headaches History of pneumonia Insomnia Muscle spasm Sleep apnea Unilateral primary osteoarthritis, right knee Surgical History (Updated 12/10/20 @ 14:47 by Giovana Aguirre RN) History of bilateral breast reduction surgery History of carpal tunnel release of both wrists History of loop recorder (~06/2019) History of tonsillectomy Social History household members: none Smoking Status: Never smoker alcohol intake: current Discharge Assessment & Plan Assessment and Plan Assessment: Stable postoperative day 2 status post right total knee replacement. She has a mild post hemorrhagic anemia which should not require treatment. She has had difficulty with pain control but is currently reporting reasonable control with 10 mg of oxycodone every 3-4 hours. She had a significant pain control flare yesterday, this seems to have resolved. Plan of Treatment: Discharge today with follow-up in 10-14 days. The patient was provided her postoperative prescriptions at her preoperative appointment. These included oxycodone, Vistaril and instructions for the use of Tylenol and ibuprofen. She will use aspirin 81 mg p.o. b.i.d. as DVT prophylaxis. Discharge Plan Discharge Plan Patient Disposition: Home Discharge orders & Medications Prescriptions: New acetaminophen 325 mg Tablet 650 mg PO TID 30 Days Qty: 180 RF: 0 aspirin 81 mg Tablet,Delayed Release (Dr/Ec) 81 mg PO BID 42 Days Qty: 84 RF: 0 oxycodone 5 mg Tablet 5 mg PO Q4H PRN (Reason: Pain, Moderate (4-6)) Qty: 40 RF: 0 hydroxyzine pamoate 25 mg Capsule 25 mg PO Q6HR PRN (Reason: Nausea) Qty: 40 RF: 0 Continued cyclobenzaprine 10 mg Tablet 10 mg PO TID PRN (Reason: Muscle Spasms) RF: 0 trazodone 50 mg Tablet 50 mg PO DAILY PRN (Reason: Insomnia) RF: 0 citalopram [Celexa] 20 mg Tablet 20 mg PO DAILY RF: 0 hydrochlorothiazide 25 mg Tablet 25 mg PO DAILY RF: 0 rizatriptan 5 mg Tablet 5 mg PO PRN PRN (Reason: Migraine Headache) RF: 0 cholecalciferol (vitamin D3) [Vitamin D3] 10 mcg (400 unit) Capsule 10 mcg PO DAILY RF: 0 topiramate 50 mg Tablet 50 mg PO DAILY RF: 0 Follow up/Referrals: Douglas Tripp MD [Primary Care Provider] - Quincy Gutierrez MD [Physician] - 2 Weeks Diet/Activity/Treatments Diet: Diet as Tolerated and Regular Activity: You may bear weight as tolerated on your right leg. Cold/Heat Therapy: Apply ice to the right knee for 15 minutes of every hour as needed for pain control. Skin/Wound/Dressing Care Report to your healthcare provider any signs of infection, such as:: chills, fever, night sweats, increased pain, unusual drainage and unusual redness Dressing: Leave the [place] wrap intact until 3 days after surgery. You may then remove the [place] wrap and shower normally. Leave the deeper dressing in place until follow-up. You may shower with the deeper dressing in place. If the central strip of the deeper dressing becomes saturated with either water or blood, please call the office to have it evaluated. Visit Report/Discharge Packet Instructions: DI for Knee Replacement, How to Prevent Falls, DI for Prescription Opioid Use Stand Alone Forms: Surgery Discharge Discharge Data Primary Care Provider: Douglas Tripp Attending Provider: Quincy Gutierrez Quality VTE Deep Vein Thrombosis/Pulmonary Embolism Present on Admission: No
--- NOTE | 2020-12-19 10:42 | PC.NURSE ---
Assess- Patient given oxycodone 10mg for pain and helpful. She has an aquacel to her r.knee with martin wrap, both cdi. Moving well with physical therapy and [facility]. Patient to discharge around 1230.
== END 2020-12-19 12:35 | disposition home or self-care (01) ==
LOC: OR 15:27 → AC 15:27
PROVIDERS: Admitting Provider Orthopaedic Surgery; PCP Internal Medicine; Referring Provider Internal Medicine; Visit Provider Orthopaedic Surgery
PROC: 0SRC0JZ Replacement of Right Knee Joint with Synthetic Substitute, Open Approach (ICD-10-PCS; CPT 27447; principal; 2020-12-17 07:45)
DX: M17.11 Unilateral primary osteoarthritis, right knee (principal); I10 Essential (primary) hypertension; E66.9 Obesity, unspecified; G47.33 Obstructive sleep apnea (adult) (pediatric); D50.0 Iron deficiency anemia secondary to blood loss (chronic); Z68.38 Body mass index [BMI] 38.0-38.9, adult
CPT/HCPCS: 27447; 36415; 73560; 85014; 85018; 94762; 97110; 97116; 97161; 97530; C1776; G0378; C9290; J0690; J1100; J1170; J2250; J2270; J2405; J2704; J3010